=== PATIENT | female | born 1990 | race Two or more races ===

== ENCOUNTER 2017-06-26 19:11 | Emergency (ER) | payer MEDICAID ==
[~2017-06-26] VITALS: Ht 160 cm; Wt 81.6 kg
[~2017-06-26 19:11] MED LIST: ALBUTEROL SULF8.5 GM INH; BACTRIM DS TAB1 EAC1 ORAL; MEDROL DOSEPAK4 MG ORAL; NKM; NORCO 5-325 TA1 EACH ORAL; PREDNISONE20 MG ORAL
[2017-06-26 19:30] VITALS: BP 120/78
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
[2017-06-26] MEDS ORDERED: NAPROXEN500 M1 ORAL (20:51)
[2017-06-26 21:00] VITALS: BP 118/81
--- NOTE | 2017-06-27 09:24 | Diagnostic Imaging Report ---
Indication: Reason For Exam: PAIN Technique: XRAY Ankle Compl Min 3v R Comparison: None. Findings: The osseous structures are intact. There is no fracture or destruction. The visualized joints are normal. The soft tissues are unremarkable. Impression: Normal.
--- NOTE | 2017-06-27 09:25 | Diagnostic Imaging Report ---
Indication: Reason For Exam: PAIN Technique: XRAY Knee 3v R Comparison: None. Findings: The bones appear intact. No fracture. No bone destruction. There is marked fullness of the suprapatellar pouch. Lateral view is not a crosstable lateral. Impression: Knee effusion. No definite bony injury. The possibility of an occult fracture is not excluded.
== END 2017-06-26 21:00 | disposition home or self-care (01) ==
LOC: EMR 20:44 → MERGE 20:44 → EMR 21:00
DX: S89.91XA Unspecified injury of right lower leg, initial encounter (principal); S99.921A Unspecified injury of right foot, initial encounter; S83.411A Sprain of medial collateral ligament of right knee, initial encounter; S96.911A Strain of unspecified muscle and tendon at ankle and foot level, right foot, initial encounter; S99.911A Unspecified injury of right ankle, initial encounter; W05.1XXA Fall from non-moving nonmotorized scooter, initial encounter; Y93.9 Activity, unspecified; Y92.9 Unspecified place or not applicable
CPT/HCPCS: 29530; 99284